=== PATIENT | male | born 1960 | race Caucasian/White ===

== ENCOUNTER 2020-12-26 18:48 | Observation (INO) | payer OTHER, BC ==
[~2020-12-26] VITALS: Ht 175.3 cm; Wt 66.0 kg
[2020-12-26 19:48] LABS: BASO # 0.1 10^3/uL (0.0-0.2); BASO % 0.6 % (0.0-1.0); EOS # 0.1 10^3/uL (0.0-0.5); EOS % 0.9 % (0.0-3.0); HEMATOCRIT 35.9 % (42.0-52.0); HEMOGLOBIN 13.1 g/dl (13.5-17.5); LYMPH # 0.2 10^3/uL (1.5-5.0); MEAN CORPUSCULAR HEMOGLOBIN 34.8 pg (27.0-33.0); MEAN CORPUSCULAR HGB CONC 36.5 g/dl (32.0-36.5); MEAN CORPUSCULAR VOLUME 95.5 fl (80.0-96.0); MONO # 0.5 10^3/uL (0.0-0.8); MONO % 5.7 % (2.0-8.0); NEUTROPHILS # 7.2 10^3/uL (1.5-8.5); NEUTROPHILS % 89.4 % (36.0-66.0); PLATELET COUNT, AUTOMATED 255 10^3/uL (150-450); RED BLOOD COUNT 3.76 10^6/uL (4.30-6.10)
[2020-12-26] MEDS ORDERED: ACETAMINOPHEN TAB 650MG DOSE (2X325MG) PO ONE (19:50)
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
[2020-12-26 20:07] LABS: ALT/SGPT 55 U/L (12-78); AMYLASE 90 U/L (25-115); BILIRUBIN,TOTAL 2.3 MG/DL (0.2-1.0); BLOOD UREA NITROGEN 7 MG/DL (7-18); CALCIUM LEVEL 8.7 MG/DL (8.8-10.2); CARBON DIOXIDE LEVEL 20 MEQ/L (21-32); CHLORIDE LEVEL 100 MEQ/L (98-107); CPK CREATINE PHOSPHOKINASE 86 U/L (39-308); CREATININE FOR GFR 1.17 MG/DL (0.70-1.30); ETHYL ALCOHOL (ETHANOL) < 0.003 % (0.000-0.010); GLOMERULAR FILTRATION RATE > 60.0 (>49); GLUCOSE, FASTING 150 MG/DL (70-100); LIPASE 587 U/L (73-393); MB/CK RELATIVE INDEX 2.33 (< OR =4); POTASSIUM SERUM 2.5 MEQ/L (3.5-5.1); SODIUM LEVEL 134 MEQ/L (136-145); TOTAL PROTEIN 6.9 GM/DL (6.4-8.2); TROPONIN I < 0.02 NG/ML (< 0.10)
[2020-12-26] MEDS ORDERED: POTASSIUM CHLORIDE 10 MEQ SR TABLET PO ONE (20:15)
[2020-12-26] MEDS ORDERED: KCL 10MEQ/100ML SWI (KRUN) 10 MEQ in IV 1 EA IV ONE ×3 (20:15→22:15)
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
[2020-12-26 20:36] LABS: AMPHETAMINES LEVEL URINE NEGATIVE (NEGATIVE); BARBITURATES URINE NEGATIVE (NEGATIVE); BENZODIAZEPINES URINE NEGATIVE (NEGATIVE); CANNABINOIDS URINE NEGATIVE (NEGATIVE); COCAINE METABOLITE URINE NEGATIVE (NEGATIVE); METHADONE URINE NEGATIVE (NEGATIVE); OPIATES URINE NEGATIVE (NEGATIVE); PHENCYCLIDINE URINE NEGATIVE (NEGATIVE)
[2020-12-26] MEDS ORDERED: NS 1,000 ML IV ONE ×2 (21:00)
[2020-12-26] MEDS ORDERED: HOME MED LIST COMPLETE! XX SCH (23:20)
[2020-12-26] MEDS ORDERED: VITMTA PO (23:20)
[2020-12-26] MEDS ORDERED: LORazepam 1 MG TAB PO STA (23:38)
[2020-12-27] MEDS ORDERED: NS 1,000 ML IV SCH (00:05)
[2020-12-27] MEDS ORDERED: LORazepam 2 MG TAB PO PRN (00:05)
[2020-12-27] MEDS ORDERED: POTASSIUM CHLORIDE 10 MEQ SR TABLET PO ONE (00:15)
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
[2020-12-27 00:42] LABS: MAGNESIUM LEVEL 1.9 MG/DL (1.8-2.4)
[2020-12-27 00:55] VITALS: BP 129/82
[2020-12-27 01:07] VITALS: BP 129/82
[2020-12-27] MEDS: THIAMINE 100 MG TAB PO SCH ×2 (01:19→09:07)
[2020-12-27 06:00] VITALS: BP_SYST 116; BP_SYST 130; BP_DIAS 75; BP_DIAS 86
[2020-12-27] MEDS ORDERED: VANCOMYCIN ORAL SOL 250MG/5ML ORAL SYRINGE PO SCH ×2 (06:00→12:00)
[2020-12-27 06:31] LABS: HEMATOCRIT 31.4 % (42.0-52.0); MEAN CORPUSCULAR HEMOGLOBIN 35.4 pg (27.0-33.0); MEAN CORPUSCULAR HGB CONC 35.4 g/dl (32.0-36.5); PLATELET COUNT, AUTOMATED 219 10^3/uL (150-450); RED BLOOD COUNT 3.14 10^6/uL (4.30-6.10); WHITE BLOOD COUNT 5.2 10^3/uL (4.0-10.0)
[2020-12-27 06:33] LABS: HEMOGLOBIN 11.1 g/dl (13.5-17.5)
[2020-12-27 06:54] LABS: BLOOD UREA NITROGEN 6 MG/DL (7-18); CARBON DIOXIDE LEVEL 23 MEQ/L (21-32); CHLORIDE LEVEL 107 MEQ/L (98-107); CREATININE FOR GFR 0.75 MG/DL (0.70-1.30); GLOMERULAR FILTRATION RATE > 60.0 (>49); GLUCOSE, FASTING 95 MG/DL (70-100); POTASSIUM SERUM 3.1 MEQ/L (3.5-5.1); SODIUM LEVEL 139 MEQ/L (136-145)
[2020-12-27 08:49] LABS: HIV 1&2 SCREEN CENTAUR NEGATIVE (NEGATIVE)
[2020-12-27] MEDS ORDERED: FOLIC ACID 1 MG TAB PO SCH (09:00)
[2020-12-27] MEDS ORDERED: FLUBLOK(EGG FREE)(QUAD)INFLUENZA VACC 0.5ML SYRINGE 18YRS & OLDER IM ONE (09:00)
[2020-12-27] MEDS ORDERED: MULTIVITAMINS/MINERALS THERAP 1 TAB PO SCH (09:00)
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
--- NOTE | 2020-12-27 17:52 | ECGEPIP ---
[facility] - ED Test Date: 2020-12-26 Pat Name: AN KING Department: Room: [place] [address] Gender: Male [employer]ated C[employer] Clerk: FATOUMATA : [id number] Requested By: KHARI Ott Order Number: [id number] Reading MD: Libia Lane Measurements Intervals [place] Rate: 102 P: 58 KS: 154 QRS: -18 QRSD: 94 T: 71 QT: 404 QTc: 526 Interpretive Statements Sinus tachycardia Nonspecific ST and T wave abnormality Prolonged QT, clinical correlation no prior Electronically Signed on 12-27-2020 17:52:[address]
== END 2020-12-27 12:11 | disposition left against medical advice (07) ==
LOC: M ED 18:48 → M MSPAV 18:49 → ENRESERV 12-27 00:18
PROVIDERS: ADMIT Internal Medicine; ATTEND Internal Medicine
DX: A04.72 Enterocolitis due to Clostridium difficile, not specified as recurrent (principal); Z53.20 Procedure and treatment not carried out because of patient's decision for unspecified reasons; E87.6 Hypokalemia; E87.2 Acidosis; F10.20 Alcohol dependence, uncomplicated; D64.9 Anemia, unspecified; Z79.899 Other long term (current) drug therapy; V89.2XXA Person injured in unspecified motor-vehicle accident, traffic, initial encounter
CPT/HCPCS: 36415; 70450; 71250; 72125; 74176; 80048; 80053; 80307; 81001; 82077; 82150; 82550; 82553; 83605; 83690; 83735; 84484; 85025; 85027; 87040; 87389; 87505; 87798; 90682; 93005; 96361; 96365; 96366; 99285; G0008